=== PATIENT | female | born 1995 | race African-American/Black ===

== ENCOUNTER 2017-12-25 11:50 | Emergency (ER) | payer OTHER ==
[2017-12-25] MEDS: IBUPROFEN 800 MG TAB PO (13:09)
== END 2017-12-25 15:12 | disposition home or self-care (01) ==
LOC: FTE 11:50
DX: J02.9 Acute pharyngitis, unspecified (principal)
CPT/HCPCS: 87400; 87880; 99283

== ENCOUNTER 2018-04-22 16:11 | Emergency (ER) | payer OTHER ==
[2018-04-22] MEDS: IBUPROFEN 600 MG TAB PO (17:36)
[2018-04-22 17:55] LABS: ADD UMIC NO; UR ASCORBIC ACID 20 mg/dL (NEGATIVE); UR BILIRUBIN (Dip) NEGATIVE (NEGATIVE); UR BLOOD (Dip) NEGATIVE (NEGATIVE); UR CLARITY CLEAR (CLEAR); UR COLOR YELLOW (YELLOW); UR GLUCOSE (Dip) NEGATIVE (NEGATIVE); UR KETONES (Dip) NEGATIVE (NEGATIVE); UR LEUKOCYTE ESTERASE (Dip) NEGATIVE Leu/ul (NEGATIVE); UR NITRITE (Dip) NEGATIVE (NEGATIVE); UR SPECIFIC GRAVITY (Dip) 1.025 (1.003-1.030); UR TOTAL PROTEIN (Dip) NEGATIVE (NEGATIVE); UR UROBILINOGEN (Dip) NEGATIVE (NEGATIVE)
== END 2018-04-22 18:54 | disposition home or self-care (01) ==
LOC: FTE 16:11
DX: R10.2 Pelvic and perineal pain (principal)
CPT/HCPCS: 76830; 76856; 81003; 81025; 99284-25

== ENCOUNTER 2018-11-11 12:40 | Emergency (ER) | payer OTHER ==
[2018-11-11] MEDS: IBUPROFEN 800 MG TAB PO (15:54)
== END 2018-11-11 17:34 | disposition home or self-care (01) ==
LOC: FTE 12:40
DX: S76.011A Strain of muscle, fascia and tendon of right hip, initial encounter (principal); R10.2 Pelvic and perineal pain; X58.XXXA Exposure to other specified factors, initial encounter; Y92.9 Unspecified place or not applicable
CPT/HCPCS: 76856; 81025; 99284-25

== ENCOUNTER 2019-01-10 16:14 | Emergency (ER) | payer OTHER ==
[2019-01-10] MEDS: ONDANSETRON 4 MG INJ IV (19:26)
[2019-01-10] MEDS: FAMOTIDINE 20 MG INJ IV (19:26)
[2019-01-10] MEDS: SOD CHLORIDE 0.9% 500 ML IV (19:26)
[2019-01-10 19:33] LABS: ADD MAN DIFF? NO
[2019-01-10 19:37] LABS: WHITE BLOOD COUNT 8.5 10^3/ul (4.8-10.8)
[2019-01-10 19:37] LABS: ABNORMAL IP MESSAGE 1; BASOPHILS % 0.2 % (0.0-2.0); EOSINOPHILS # 0.1 10^3/ul (0.0-0.5); EOSINOPHILS % 0.9 % (0.0-7.0); HEMATOCRIT 38.8 % (37.0-47.0); HEMOGLOBIN 10.8 g/dl (12.0-16.0); LYMPHOCYTES # 2.3 10^3/ul (0.8-2.9); LYMPHOCYTES % 26.8 % (15.0-51.0); MEAN CORPUSCULAR HEMOGLOBIN 19.5 pg (29.0-33.0); MEAN CORPUSCULAR HGB CONC 27.8 g/dl (32.0-37.0); MONOCYTE # 0.7 10^3/ul (0.3-0.9); MONOCYTES % 7.6 % (0.0-11.0); NEUTROPHIL # 5.5 10^3/ul (1.6-7.5); NEUTROPHILS % 64.1 % (39.0-77.0); PLATELET COUNT 408 10^3/UL (140-415); RED BLOOD COUNT 5.54 10^6/ul (4.20-5.40); RED CELL DISTRIBUTION WIDTH 19.2 % (11.5-14.5)
[2019-01-10 19:39] LABS: POSITIVE DIFF @See below
[2019-01-10 19:59] LABS: ALANINE AMINOTRANSFERASE 36 IU/L (13-69); ALBUMIN 4.8 g/dl (3.3-4.9); ALBUMIN/GLOBULIN RATIO 1.06; ALKALINE PHOSPHATASE 116 IU/L (42-121); ANION GAP 12 (5-13); ASPARTATE AMINO TRANSFERASE 35 IU/L (15-46); BILIRUBIN,INDIRECT 0.3 mg/dl (0-1.1); BILIRUBIN,TOTAL 0.3 mg/dl (0.2-1.3); BLOOD UREA NITROGEN 14 mg/dl (7-20); CALCIUM 10.3 mg/dl (8.4-10.2); CARBON DIOXIDE 25 mmol/L (21-31); CHLORIDE 105 mmol/L (97-110); CREATININE 0.66 mg/dl (0.44-1.00); Estimated GFR > 60 mL/min (>60); GLUCOSE 114 mg/dl (70-220); LIPASE 93 U/L (23-300); POTASSIUM 4.1 mmol/L (3.5-5.1); SODIUM 142 mmol/L (135-144); TOTAL PROTEIN 9.3 g/dl (6.1-8.1)
[2019-01-10 20:05] LABS: URINE BLOOD (Dip) POC 3+ (NEGATIVE); URINE GLUCOSE (Dip) POC Negative (NEGATIVE); URINE KETONES (Dip) POC Negative (NEGATIVE); URINE LEUKOCYTE EST (Dip) POC Negative (NEGATIVE); URINE NITRITE (Dip) POC Negative (NEGATIVE); URINE TOTAL PROTEIN POC 2+ (NEGATIVE)
[2019-01-10 20:05] LABS: URINE PH (Dip) POC 5.5 (5.0-8.5)
[2019-01-10 21:04] LABS: ADD UMIC YES; UR ASCORBIC ACID 40 mg/dL (NEGATIVE); UR BACTERIA FEW /HPF (NONE SEEN); UR BILIRUBIN (Dip) NEGATIVE (NEGATIVE); UR BLOOD (Dip) 3+ mg/dL (NEGATIVE); UR CLARITY TURBID (CLEAR); UR COLOR YELLOW (YELLOW); UR GLUCOSE (Dip) NEGATIVE (NEGATIVE); UR KETONES (Dip) TRACE mg/dL (NEGATIVE); UR LEUKOCYTE ESTERASE (Dip) NEGATIVE Leu/ul (NEGATIVE); UR MUCUS MANY /HPF (NONE SEEN); UR NITRITE (Dip) NEGATIVE (NEGATIVE); UR RBC > 182 /HPF (0-5); UR SPECIFIC GRAVITY (Dip) 1.032 (1.003-1.030); UR SQUAMOUS EPITHELIAL CELL FEW /HPF (FEW); UR TOTAL PROTEIN (Dip) 1+ mg/dl (NEGATIVE); UR UROBILINOGEN (Dip) NEGATIVE (NEGATIVE); UR WBC 85 /HPF (0-5)
[2019-01-10] MEDS: KETOROLAC 15 MG INJ IV (21:15)
[2019-01-10] MEDS: CIPROFLOXACIN 500 MG TAB PO (21:15)
[2019-01-10] MEDS: morphine 2 MG INJ IV (21:16)
== END 2019-01-10 22:12 | disposition home or self-care (01) ==
LOC: FTE 16:14
DX: K52.9 Noninfective gastroenteritis and colitis, unspecified (principal); N39.0 Urinary tract infection, site not specified
CPT/HCPCS: 36415; 80053; 81001; 81003; 81025; 83690; 85025; 96374; 96375; 99284-25

== ENCOUNTER 2019-03-11 20:40 | Emergency (ER) | payer OTHER ==
[2019-03-11] MEDS ORDERED: KETOROLAC 60 MG INJ IM (21:23)
[2019-03-11] MEDS: HYDROCODONE/APAP (10/325) TAB PO (21:36)
[2019-03-11 22:05] LABS: ADD UMIC NO; UR ASCORBIC ACID NEGATIVE (NEGATIVE); UR BILIRUBIN (Dip) NEGATIVE (NEGATIVE); UR BLOOD (Dip) NEGATIVE (NEGATIVE); UR CLARITY CLEAR (CLEAR); UR COLOR YELLOW (YELLOW); UR GLUCOSE (Dip) NEGATIVE (NEGATIVE); UR KETONES (Dip) NEGATIVE (NEGATIVE); UR LEUKOCYTE ESTERASE (Dip) NEGATIVE Leu/ul (NEGATIVE); UR NITRITE (Dip) NEGATIVE (NEGATIVE); UR SPECIFIC GRAVITY (Dip) 1.026 (1.003-1.030); UR TOTAL PROTEIN (Dip) NEGATIVE (NEGATIVE); UR UROBILINOGEN (Dip) NEGATIVE (NEGATIVE)
== END 2019-03-11 22:27 | disposition home or self-care (01) ==
LOC: FTE 20:40
DX: M54.31 Sciatica, right side (principal)
CPT/HCPCS: 81003; 81025; 99283

== ENCOUNTER 2019-04-24 05:56 | Emergency (ER) | payer OTHER ==
[2019-04-24 06:27] LABS: URINE BLOOD (Dip) POC 3+ (NEGATIVE); URINE GLUCOSE (Dip) POC Negative (NEGATIVE); URINE KETONES (Dip) POC Negative (NEGATIVE); URINE LEUKOCYTE EST (Dip) POC Negative (NEGATIVE); URINE NITRITE (Dip) POC Negative (NEGATIVE); URINE TOTAL PROTEIN POC 2+ (NEGATIVE)
[2019-04-24 06:27] LABS: URINE PH (Dip) POC 5.5 (5.0-8.5)
[2019-04-24] MEDS: DEXAMETHASONE 10 MG/ML 1 ML INJ IM (06:35)
[2019-04-24] MEDS: DIAZEPAM 5 MG TAB PO (06:35)
[2019-04-24] MEDS: KETOROLAC 60 MG INJ IM (06:36)
== END 2019-04-24 07:09 | disposition home or self-care (01) ==
LOC: FTE 07:09
DX: M54.31 Sciatica, right side (principal)
CPT/HCPCS: 81003; 81025; 96372; 99284-25